=== PATIENT | female | born 1975 | race Caucasian/White ===

== ENCOUNTER → 2017-02-05 | Outpatient (CLI) | payer BC ==
--- NOTE | 2017-02-05 10:06 | REP ---
LEFT FOOT, FOUR VIEWS: HISTORY: Contusion. There is no acute fracture or dislocation. The joint spaces are normal in appearance. IMPRESSION: There is no acute fracture or dislocation. Signed by Chi Beebe MD 02/05/2017 10:07 A
== END ==
LOC: M ADAMS 09:00
PROVIDERS: ATTEND Physician Assistant Medical
DX: S90.32XA Contusion of left foot, initial encounter (principal); X58.XXXA Exposure to other specified factors, initial encounter; Y92.89 Other specified places as the place of occurrence of the external cause; Y93.89 Activity, other specified; Y99.8 Other external cause status

== ENCOUNTER → 2019-05-30 | Outpatient (REF) | payer BC ==
[2019-05-30 17:16] LABS: HEMATOCRIT 38.2 % (36.0-47.0); HEMOGLOBIN 12.8 g/dl (12.0-15.5); MEAN CORPUSCULAR HGB CONC 33.5 g/dl (32.0-36.5); MEAN CORPUSCULAR VOLUME 92.5 fl (80.0-96.0); PLATELET COUNT, AUTOMATED 278 10^3/uL (150-450); RED BLOOD COUNT 4.13 10^6/uL (4.00-5.40); WHITE BLOOD COUNT 6.1 10^3/uL (4.0-10.0)
[2019-05-30 17:57] LABS: THYROID STIMULATING HORMONE 0.681 uIU/ML (0.358-3.740)
[2019-05-30 17:58] LABS: FOLLICLE STIMULATING HORMONE 12.1 mIU/mL
== END ==
LOC: M LAB REF 16:45
PROVIDERS: ATTEND Obstetrics & Gynecology
DX: N92.0 Excessive and frequent menstruation with regular cycle (principal)

== ENCOUNTER → 2022-05-04 | Outpatient (CLI) | payer BC | LOC: M WHC 07:04 | PROVIDERS: ATTEND Nurse Practitioner Family | DX: Z12.31 Encounter for screening mammogram for malignant neoplasm of breast (principal) ==

== ENCOUNTER → 2022-05-04 | Outpatient (CLI) | payer BC ==
[2022-05-04 10:46] LABS: BASO % 0.7 % (0.0-1.0); EOS # 0.1 10^3/uL (0.0-0.5); HEMATOCRIT 42.3 % (36.0-47.0); HEMOGLOBIN 14.3 g/dl (12.0-15.5); LYMPH # 1.4 10^3/uL (1.5-5.0); LYMPH % 23.1 % (24.0-44.0); MEAN CORPUSCULAR HGB CONC 33.8 g/dl (32.0-36.5); MEAN CORPUSCULAR VOLUME 91.8 fl (80.0-96.0); MONO # 0.4 10^3/uL (0.0-0.8); MONO % 6.1 % (2.0-8.0); NEUTROPHILS # 4.1 10^3/uL (1.5-8.5); NEUTROPHILS % 68.8 % (36.0-66.0); PLATELET COUNT, AUTOMATED 312 10^3/uL (150-450); RED BLOOD COUNT 4.61 10^6/uL (4.00-5.40); WHITE BLOOD COUNT 5.9 10^3/uL (4.0-10.0)
[2022-05-04 11:22] LABS: FREE T4 1.34 NG/DL (0.89-1.76); THYROID STIMULATING HORMONE 0.641 uIU/ML (0.55-4.78)
[2022-05-04 11:23] LABS: TOTAL 25(OH) VITAMIN D 79.6 NG/ML (20.0-100.0); VITAMIN B12 LEVEL 675 PG/ML (211-911)
[2022-05-04 11:24] LABS: FOLATE > 24.00 NG/ML (>5.4); TOTAL IRON BINDING CAPACITY 275 UG/DL (250-425)
[2022-05-04 11:26] LABS: ALKALINE PHOSPHATASE 46 U/L (46-116); ALT/SGPT 16 U/L (7.0-40); AST/SGOT 15 U/L (<34); BILIRUBIN,TOTAL 0.5 MG/DL (0.3-1.2); BLOOD UREA NITROGEN 15 MG/DL (9-23); CALCIUM LEVEL 9.4 MG/DL (8.5-10.1); CARBON DIOXIDE LEVEL 29 MMOL/L (20-31); CHLORIDE LEVEL 104 MMOL/L (98-107); CHOLESTEROL LEVEL 219 MG/DL (<200); CHOLESTEROL RISK RATIO 5.26 (<5); CREATININE FOR GFR 0.58 MG/DL (0.55-1.30); GLOMERULAR FILTRATION RATE > 60.0 (>58); GLUCOSE, FASTING 81 MG/DL (60-100); HDL CHOLESTEROL 41.6 MG/DL (>40); IRON (FE) 113 UG/DL (50-170); LDL CHOLESTEROL 164.8 MG/DL (<100); MAGNESIUM LEVEL 1.8 MG/DL (1.8-2.4); NON-HDL-C 177 MG/DL; PERCENT SATURATION 41.1 % (13.2-45.0); POTASSIUM SERUM 4.3 MMOL/L (3.5-5.1); SODIUM LEVEL 139 MMOL/L (136-145); TOTAL PROTEIN 6.9 G/DL (5.7-8.2); TRIGLYCERIDES LEVEL 63 MG/DL (<150)
== END ==
LOC: M PLALAB 08:03
PROVIDERS: ATTEND Nurse Practitioner Adult Health
DX: G47.62 Sleep related leg cramps (principal)

== ENCOUNTER → 2022-06-13 | Outpatient (REF) | payer BC | LOC: M LAB REF 16:58 | PROVIDERS: ATTEND Nurse Practitioner Adult Health | DX: N89.8 Other specified noninflammatory disorders of vagina (principal) ==

== ENCOUNTER → 2022-06-13 | Outpatient (REF) | payer BC | LOC: M LAB REF 17:07 | PROVIDERS: ATTEND Nurse Practitioner Adult Health | DX: R30.0 Dysuria (principal) ==

== ENCOUNTER → 2022-10-31 | Outpatient (REF) | payer BC | LOC: M LAB REF 17:01 | PROVIDERS: ATTEND Family Medicine | DX: N76.0 Acute vaginitis (principal); N23 Unspecified renal colic ==

== ENCOUNTER → 2023-03-09 | Outpatient (REF) | LOC: M EMP 11:12 | PROVIDERS: ATTEND Family Medicine | DX: Z11.52 Encounter for screening for COVID-19 (principal) ==

== ENCOUNTER → 2023-12-26 | Outpatient (CLI) | payer BC | LOC: M WHC 07:00 | PROVIDERS: ATTEND Nurse Practitioner Adult Health | DX: Z12.31 Encounter for screening mammogram for malignant neoplasm of breast (principal) ==

== ENCOUNTER → 2024-01-18 | Outpatient (CLI) | payer BC | LOC: M WHC 08:09 | PROVIDERS: ATTEND Nurse Practitioner Adult Health | DX: R92.2 Inconclusive mammogram (principal) ==

== ENCOUNTER → 2024-04-16 | Outpatient (REF) | payer BC ==
[2024-04-16 11:19] LABS: BASO # 0.1 10^3/uL (0.0-0.2); BASO % 1.1 % (0.0-1.0); EOS # 0.1 10^3/uL (0.0-0.5); EOS % 1.5 % (0.0-3.0); HEMOGLOBIN 14.1 g/dl (12.0-15.5); LYMPH # 1.5 10^3/uL (1.5-5.0); LYMPH % 27.3 % (24.0-44.0); MEAN CORPUSCULAR HEMOGLOBIN 30.5 pg (27.0-33.0); MEAN CORPUSCULAR HGB CONC 32.8 g/dl (32.0-36.5); MEAN CORPUSCULAR VOLUME 93.1 fl (80.0-96.0); MONO # 0.3 10^3/uL (0.0-0.8); MONO % 5.2 % (2.0-8.0); NEUTROPHILS # 3.5 10^3/uL (1.5-8.5); NEUTROPHILS % 64.7 % (36.0-66.0); PLATELET COUNT, AUTOMATED 281 10^3/uL (150-450); RED BLOOD COUNT 4.62 10^6/uL (4.00-5.40); WHITE BLOOD COUNT 5.4 10^3/uL (4.0-10.0)
[2024-04-16 12:03] LABS: ALKALINE PHOSPHATASE 45 U/L (35-104); ALT/SGPT 19 U/L (7.0-40); AST/SGOT 13 U/L (<34); BILIRUBIN,TOTAL 0.4 MG/DL (0.3-1.2); BLOOD UREA NITROGEN 21 MG/DL (9-23); CALCIUM LEVEL 9.6 MG/DL (8.5-10.1); CARBON DIOXIDE LEVEL 29 MMOL/L (20-31); CHLORIDE LEVEL 106 MMOL/L (98-107); CHOLESTEROL LEVEL 231 MG/DL (<200); CHOLESTEROL RISK RATIO 3.91 (<5); CREATININE FOR GFR 0.57 MG/DL (0.55-1.30); ESTRADIOL < 19.0 PG/ML; FOLLICLE STIMULATING HORMONE 103.9 mIU/ML; GLOMERULAR FILTRATION RATE > 60.0 (>58); GLUCOSE, FASTING 74 MG/DL (60-100); LDL CHOLESTEROL 154.6 MG/DL (<100); LUTEINIZING HORMONE 35.8 mIU/ML; POTASSIUM SERUM 4.2 MMOL/L (3.5-5.1); SODIUM LEVEL 140 MMOL/L (136-145); TOTAL PROTEIN 7.1 G/DL (5.7-8.2); TRIGLYCERIDES LEVEL 87 MG/DL (<150)
== END ==
LOC: M LABWUC 09:33
PROVIDERS: ATTEND Nurse Practitioner Adult Health
DX: R61 Generalized hyperhidrosis (principal); J30.9 Allergic rhinitis, unspecified; E78.5 Hyperlipidemia, unspecified

== ENCOUNTER → 2025-02-24 | Outpatient (REF) | payer BC | LOC: M LAB REF 17:11 | PROVIDERS: ATTEND Nurse Practitioner Adult Health | DX: R30.0 Dysuria (principal) ==